=== PATIENT | female | born 1975 | race Caucasian/White ===

== ENCOUNTER 2024-09-21 01:53 | Emergency (ER) | payer BC ==
[2024-09-21] MEDS ORDERED: Sodium Chloride 0.9% 10 ML Syringe FLUSH PRN (02:10)
[2024-09-21] MEDS: Sodium Chloride 0.9% 1,000 ML IV ONE (02:50)
[2024-09-21 02:55] LABS: BASOPHILS ABSOLUTE AUTO 0.05 K/uL (0.00-0.20); EOSINOPHILS ABSOLUTE AUTO 0.12 K/uL (0.00-0.45); EOSINOPHILS PERCENT AUTO 2.5 % (0.0-6.0); HEMATOCRIT 40.4 % (37.0-47.0); HEMOGLOBIN 13.4 g/dL (12.0-16.0); IMMATURE GRAN ABSOLUTE AUTO 0.04 K/uL (0.00-0.05); IMMATURE GRAN PERCENT AUTO 0.8 % (0.0-0.4); LYMPHOCYTES ABSOLUTE AUTO 1.53 K/uL (1.00-4.80); LYMPHOCYTES PERCENT AUTO 31.8 % (24.0-44.0); MEAN CORPUSCULAR HEMOGLOBIN 29.9 pg (28.0-32.0); MEAN CORPUSCULAR HGB CONC 33.2 g/dL (32.0-36.0); MEAN CORPUSCULAR VOLUME 90.2 fL (83.0-99.0); MEAN PLATELET VOLUME 10.1 fL (9.4-12.3); MONOCYTES ABSOLUTE AUTO 0.31 K/uL (0.00-0.80); MONOCYTES PERCENT AUTO 6.4 % (0.0-8.0); NEUTROPHILS ABSOLUTE AUTO 2.76 K/uL (1.80-7.70); NEUTROPHILS PERCENT AUTO 57.5 % (41.0-71.0); PLATELET COUNT,PLT 208 K/uL (150-400); RED BLOOD CELL COUNT 4.48 M/uL (4.10-5.30); WHITE BLOOD CELL COUNT,WBC 4.81 K/uL (3.9-11.3)
[2024-09-21 03:08] LABS: INR 0.95 (0.86-1.11)
[2024-09-21 03:24] LABS: A/G RATIO 1.1 (0.9-1.6); ALBUMIN 3.9 g/dL (3.4-5.0); BILIRUBIN TOTAL 0.2 mg/dL (0.2-1.0); CALCIUM 8.6 mg/dL (8.5-10.1); CARBON DIOXIDE,CO2 25.4 mmol/L (21.0-32.0); CREATININE 0.7 mg/dL (0.6-1.0); EST CRCL DRUG DOSING (CG) 96.62 mL/min; MAGNESIUM 2.1 mg/dL (1.8-2.4); POTASSIUM,K 4.4 mmol/L (3.5-5.1); PROTEIN TOTAL,TP 7.3 g/dL (6.4-8.2)
== END 2024-09-21 03:46 | disposition home or self-care (01) ==
LOC: MW.ED 01:53
DX: R55 Syncope and collapse (principal); F10.120 Alcohol abuse with intoxication, uncomplicated; Z79.899 Other long term (current) drug therapy
CPT/HCPCS: 36415; 70450; 71045; 80053; 80307; 83735; 83880; 84484; 85025; 85610; 93005; 96360; 99285; J7030